=== PATIENT | female | born 1965 | race African-American/Black ===

== ENCOUNTER 2019-04-11 20:04 | Emergency (ER) | payer OTHER ==
[~2019-04-11] VITALS: Ht 172.7 cm; Wt 68.0 kg
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
[2019-04-11] MEDS ORDERED: Tetanus/Diptheria/Pertussis IM ONE (21:00)
[2019-04-11] MEDS ORDERED: Lidocaine 1% 10mg/ml/Epi 0.005mg/ml 30ml vial INJ ONE (22:15)
[2019-04-11] MEDS ORDERED: Bacitracin Oint UD TOPIC ONE (22:45)
[2019-04-11] MEDS ORDERED: BACITRACIN15 GM TOPIC (22:45)
[2019-04-11] MEDS ORDERED: TYLENOL325 MG ORAL (22:45)
[2019-04-11] MEDS ORDERED: IBUPROFEN600 MG ORAL (22:45)
[2019-04-11] MEDS ORDERED: ROBAXIN-500MG ORAL (22:45)
[2019-04-11 23:00] VITALS: BP 134/75
[2019-04-11 23:10] VITALS: BP 134/75
== END 2019-04-11 23:10 | disposition home or self-care (01) ==
LOC: EMR 23:10
DX: S01.81XA Laceration without foreign body of other part of head, initial encounter (principal); S06.0X0A Concussion without loss of consciousness, initial encounter; V43.52XA Car driver injured in collision with other type car in traffic accident, initial encounter; Y92.410 Unspecified street and highway as the place of occurrence of the external cause; M50.30 Other cervical disc degeneration, unspecified cervical region; Z23 Encounter for immunization
CPT/HCPCS: 90471; 90715; 99282